=== PATIENT | male | born 1965 | race African-American/Black ===

== ENCOUNTER 2019-04-02 22:08 | Emergency (ER) | payer MEDICAID ==
[~2019-04-02] VITALS: Ht 175.3 cm; Wt 100.0 kg
[~2019-04-02 22:08] MED LIST: RANI150C12 PO
[2019-04-02] MEDS ORDERED: SODIUM CHLORIDE 0.9% 1,000 ML IV ONE (22:28)
[2019-04-02 22:50] LABS: BASOPHILS % 0.2 % (0.0-2.0); EOSINOPHILS % 0.7 % (0.0-5.0); HEMATOCRIT. 42.4 % (42.0-52.0); HEMOGLOBIN. 14.6 g/dL (14.0-18.0); LYMPHOCYTES % 33.9 % (20.0-50.0); MEAN CORPUSCULAR HEMOGLOBIN 31.2 pg (28.0-32.0); MEAN CORPUSCULAR VOLUME 90.8 fL (80.0-94.0); MEAN PLATELET VOLUME 8.4 fl (7.4-10.4); MONOCYTES % 11.3 % (2.0-8.0); NEUTROPHILS % 53.9 % (40.0-76.0); PLATELET 190 x1000/uL (130-400); RED BLOOD CELL COUNT 4.67 mill/uL (4.7-6.1); RED CELL DISTRIBUTION WIDTH 14.1 % (11.6-14.6)
[2019-04-02 22:54] LABS: CHLORIDE 106 mEq/L (98-107)
[2019-04-02 22:58] LABS: ETHANOL BLOOD < 10 mg/dL
[2019-04-02] MEDS ORDERED: PHENYTOIN SODIUM EXTENDED 100MG CAPSULE PO ONE (23:45)
[2019-04-02] MEDS ORDERED: PHENYTOIN 100 MG/4 ML UDC PO ONE (23:45)
[2019-04-03 01:49] VITALS: BP 134/78
== END 2019-04-03 02:13 | disposition home or self-care (01) ==
LOC: ER 22:08
DX: R56.9 Unspecified convulsions (principal); F17.200 Nicotine dependence, unspecified, uncomplicated; F12.10 Cannabis abuse, uncomplicated; I10 Essential (primary) hypertension
CPT/HCPCS: 36415; 80053; 80185; 80320; 85025; 96360; 99283; J7030; Z7610; G0480

== ENCOUNTER 2019-05-01 03:20 | Emergency (ER) | payer MEDICAID ==
[~2019-05-01] VITALS: Ht 180.3 cm; Wt 100.0 kg
[2019-05-01 04:18] LABS: BASOPHILS % 0.4 % (0.0-2.0); EOSINOPHILS % 0.9 % (0.0-5.0); HEMATOCRIT. 43.9 % (42.0-52.0); HEMOGLOBIN. 15.1 g/dL (14.0-18.0); LYMPHOCYTES % 53.4 % (20.0-50.0); MEAN CORPUSCULAR VOLUME 92.6 fL (80.0-94.0); MEAN PLATELET VOLUME 8.3 fl (7.4-10.4); MONOCYTES % 9.3 % (2.0-8.0); PLATELET 209 x1000/uL (130-400); RED BLOOD CELL COUNT 4.74 mill/uL (4.7-6.1); RED CELL DISTRIBUTION WIDTH 13.5 % (11.6-14.6)
[2019-05-01 04:28] LABS: CHLORIDE 106 mEq/L (98-107)
[2019-05-01 04:34] LABS: ETHANOL BLOOD < 10 mg/dL
[2019-05-01] MEDS ORDERED: PHENYTOIN SODIUM EXTENDED 100MG CAPSULE PO NR (05:30)
[2019-05-01 05:57] VITALS: BP 133/69
[2019-05-01 06:24] LABS: CLARITY URINE CLEAR (CLEAR); COLOR URINE YELLOW (YELLOW); KETONES URINE NEGATIVE (NEGATIVE); LEUKOCYTE ESTERASE URINE NEGATIVE (NEGATIVE); NITRITE URINE NEGATIVE (NEGATIVE); OCCULT BLOOD URINE NEGATIVE (NEGATIVE); PROTEIN URINE TRACE (NEGATIVE); SPECIFIC GRAVITY URINE 1.018 (1.005-1.030); UROBILINOGEN URINE 0.2 E.U./dL (0.2-1.0)
[2019-05-01 06:41] LABS: *COCAINE SCREEN URINE NEGATIVE (NEGATIVE); METHADONE URINE SCREEN NEGATIVE (NEGATIVE)
[2019-05-01 06:42] LABS: *AMPHETAMINES SCREEN URINE PRESUMTIVE POSITIVE (NEGATIVE); *BARBITURATES SCREEN URINE NEGATIVE (NEGATIVE); *BENZODIAZEPINES SCREEN URINE NEGATIVE (NEGATIVE); CANNABINOID URINE SCREEN NEGATIVE (NEGATIVE); OPIATES URINE SCREEN NEGATIVE (NEGATIVE); PHENCYCLIDINE URINE SCREEN NEGATIVE (NEGATIVE)
== END 2019-05-01 06:16 | disposition home or self-care (01) ==
LOC: ER 03:20
DX: G40.909 Epilepsy, unspecified, not intractable, without status epilepticus (principal); R89.2 Abnormal level of other drugs, medicaments and biological substances in specimens from other organs, systems and tissues; Z91.14 Patient's other noncompliance with medication regimen
CPT/HCPCS: 36415; 70450; 80053; 80185; 80305; 80320; 81003; 82962; 85025; 99284; Z7610; G0480

== ENCOUNTER 2020-09-09 07:58 | Emergency (ER) | payer MEDICAID ==
[~2020-09-09] VITALS: Ht 177.8 cm; Wt 90.0 kg
[2020-09-09] MEDS ORDERED: KETOROLAC 30MG/ML VIAL IM ONE (09:00)
[2020-09-09 09:43] VITALS: BP 158/86
== END 2020-09-09 10:00 | disposition home or self-care (01) ==
LOC: ER 07:58
DX: M25.551 Pain in right hip (principal); I10 Essential (primary) hypertension; G40.909 Epilepsy, unspecified, not intractable, without status epilepticus; F12.10 Cannabis abuse, uncomplicated
CPT/HCPCS: 73502; 96372; 99283; J1885

== ENCOUNTER 2020-09-21 09:04 | Emergency (ER) | payer MEDICAID ==
[~2020-09-21] VITALS: Ht 182.9 cm; Wt 91.0 kg
[2020-09-21 09:10] VITALS: BP 153/99
== END 2020-09-21 09:43 | disposition home or self-care (01) ==
LOC: ER 09:14
DX: M25.551 Pain in right hip (principal)
CPT/HCPCS: 99283

== ENCOUNTER 2021-04-12 10:00 | Emergency (ER) | payer MEDICAID ==
[~2021-04-12] VITALS: Ht 172.7 cm; Wt 70.0 kg
[2021-04-12] MEDS ORDERED: ONDANSETRON HCL 4MG/2ML INJ IV STA (10:29)
[2021-04-12] MEDS ORDERED: VISCOUS LIDOCAINE 2% 15 ML UDC PO ONE (10:30)
[2021-04-12] MEDS ORDERED: MAGNESIUM/ALUMINUM HYDROXIDE/SIMETHICONE 30ML UDC PO ONE (10:30)
[2021-04-12] MEDS ORDERED: FAMOTIDINE 20MG/2ML VIAL IV ONE (10:30)
[2021-04-12] MEDS ORDERED: DICYCLOMINE 10 MG/5 ML ORAL SYR PO ONE (10:30)
[2021-04-12 10:45] LABS: HEMATOCRIT. 40.7 % (42.0-52.0); HEMOGLOBIN. 14.1 g/dL (14.0-18.0); MEAN CORPUSCULAR HEMOGLOBIN 30.8 pg (28.0-32.0); MEAN CORPUSCULAR VOLUME 89.1 fL (80.0-94.0); MEAN PLATELET VOLUME 8.3 fl (7.4-10.4); PLATELET 187 x1000/uL (130-400); RED BLOOD CELL COUNT 4.57 mill/uL (4.7-6.1); RED CELL DISTRIBUTION WIDTH 13.7 % (11.6-14.6)
[2021-04-12 10:54] LABS: CHLORIDE 105 mEq/L (98-107)
[2021-04-12 12:00] VITALS: BP 171/100
[2021-04-12] MEDS ORDERED: OMEP20TA2 PO (12:12)
[2021-04-12 13:39] LABS: PLATELET ESTIMATE NORMAL
== END 2021-04-12 12:25 | disposition home or self-care (01) ==
LOC: ER 10:09
DX: K21.9 Gastro-esophageal reflux disease without esophagitis (principal); I10 Essential (primary) hypertension
CPT/HCPCS: 36415; 71045; 80053; 83880; 84484; 85025; 93005; 96374; 96375; 99285; J2405; J3490

== ENCOUNTER 2021-05-30 12:09 | Emergency (ER) | payer MEDICAID ==
[~2021-05-30] VITALS: Ht 182.9 cm; Wt 86.0 kg
[~2021-05-30 12:09] MED LIST changes: +OMEP20TA2 PO
[2021-05-30] MEDS ORDERED: SODIUM CHLORIDE 0.9% 1,000 ML IV ONE (12:45)
[2021-05-30 13:06] VITALS: BP 147/91
[2021-05-30 13:22] LABS: BASOPHILS % 0.6 % (0.0-2.0); HEMATOCRIT. 37.3 % (42.0-52.0); HEMOGLOBIN. 13.2 g/dL (14.0-18.0); MEAN CORPUSCULAR HEMOGLOBIN 32.2 pg (28.0-32.0); MEAN CORPUSCULAR VOLUME 90.7 fL (80.0-94.0); MONOCYTES % 12.2 % (2.0-8.0); NEUTROPHILS % 51.2 % (40.0-76.0); PLATELET 118 x1000/uL (130-400); RED BLOOD CELL COUNT 4.11 mill/uL (4.7-6.1); RED CELL DISTRIBUTION WIDTH 15.7 % (11.6-14.6)
[2021-05-30 13:25] LABS: CHLORIDE 103 mEq/L (98-107)
[2021-05-30 13:30] LABS: ETHANOL BLOOD < 10 mg/dL
[2021-05-30 14:10] LABS: *BENZODIAZEPINES SCREEN URINE NEGATIVE (NEGATIVE); *COCAINE SCREEN URINE NEGATIVE (NEGATIVE); METHADONE URINE SCREEN NEGATIVE (NEGATIVE); OPIATES URINE SCREEN NEGATIVE (NEGATIVE)
[2021-05-30 14:11] LABS: CANNABINOID URINE SCREEN NEGATIVE (NEGATIVE); PHENCYCLIDINE URINE SCREEN PRESUMTIVE POSITIVE (NEGATIVE)
[2021-05-30 14:13] LABS: *AMPHETAMINES SCREEN URINE PRESUMTIVE POSITIVE (NEGATIVE)
[2021-05-30] MEDS ORDERED: POTASSIUM CHLORIDE 20MEQ TABLET SR PO NR (14:15)
[2021-05-30 14:20] LABS: *BARBITURATES SCREEN URINE NEGATIVE (NEGATIVE)
[2021-05-30] MEDS ORDERED: POTA20TA82 MT (16:31)
[2021-05-31 10:29] LABS: CLARITY URINE CLEAR (CLEAR); COLOR URINE YELLOW (YELLOW); KETONES URINE NEGATIVE (NEGATIVE); LEUKOCYTE ESTERASE URINE NEGATIVE (NEGATIVE); NITRITE URINE NEGATIVE (NEGATIVE); OCCULT BLOOD URINE NEGATIVE (NEGATIVE); PH URINE 6.5 (4.5-8.0); PROTEIN URINE NEGATIVE (NEGATIVE)
== END 2021-05-30 18:23 | disposition home or self-care (01) ==
LOC: ER 12:09
DX: R55 Syncope and collapse (principal); F15.10 Other stimulant abuse, uncomplicated; F16.10 Hallucinogen abuse, uncomplicated; F12.10 Cannabis abuse, uncomplicated; E87.6 Hypokalemia; I10 Essential (primary) hypertension; G40.909 Epilepsy, unspecified, not intractable, without status epilepticus; Z71.51 Drug abuse counseling and surveillance of drug abuser
CPT/HCPCS: 36415; 71045; 80053; 80305; 80320; 81003; 83690; 83880; 84484; 85025; 93005; 96360; 96361; 99285; J7030; Z7610; G0480

== ENCOUNTER 2021-08-04 02:30 | Emergency (ER) | payer MEDICAID ==
[~2021-08-04] VITALS: Ht 175.3 cm; Wt 87.0 kg
[~2021-08-04 02:30] MED LIST changes: +POTA20TA82 MT
[2021-08-04] MEDS ORDERED: ACETAMINOPHEN WITH CODEINE 300/30MG TABLET PO ONE (03:30)
[2021-08-04] MEDS ORDERED: BACITRACIN ZINC OINT UDPKT TOP ONE (03:30)
[2021-08-04] MEDS ORDERED: LIDOCAINE HCL/PF 1% 10 MG/ML 5ML VIAL INFIL ONE (03:30)
[2021-08-04 04:02] VITALS: BP 133/66
[2021-08-04] MEDS ORDERED: CEPH500T MT (04:48)
[2021-08-04] MEDS ORDERED: SULF1TAB48 MT (04:48)
== END 2021-08-04 05:07 | disposition home or self-care (01) ==
LOC: ER 02:30
DX: L02.31 Cutaneous abscess of buttock (principal); F12.90 Cannabis use, unspecified, uncomplicated; F15.10 Other stimulant abuse, uncomplicated
CPT/HCPCS: 10060; 99283; J3490; Z7610

== ENCOUNTER 2021-08-16 02:27 | Emergency (ER) | payer MEDICAID ==
[~2021-08-16] VITALS: Ht 165.1 cm; Wt 80.0 kg
[~2021-08-16 02:27] MED LIST changes: +CEPH500T MT; +SULF1TAB48 MT
[2021-08-16 03:09] LABS: BASOPHILS % 0.6 % (0.0-2.0); EOSINOPHILS % 1.6 % (0.0-5.0); HEMOGLOBIN. 13.4 g/dL (14.0-18.0); LYMPHOCYTES % 30.6 % (20.0-50.0); MEAN CORPUSCULAR HEMOGLOBIN 31.8 pg (28.0-32.0); MEAN CORPUSCULAR VOLUME 92.2 fL (80.0-94.0); MEAN PLATELET VOLUME 8.2 fl (7.4-10.4); MONOCYTES % 7.1 % (2.0-8.0); NEUTROPHILS % 60.1 % (40.0-76.0); PLATELET 177 x1000/uL (130-400); RED BLOOD CELL COUNT 4.23 mill/uL (4.7-6.1); RED CELL DISTRIBUTION WIDTH 13.2 % (11.6-14.6)
[2021-08-16 03:16] LABS: CHLORIDE 105 mEq/L (98-107)
[2021-08-16 03:20] LABS: ETHANOL BLOOD < 10 mg/dL
[2021-08-16 03:42] LABS: CLARITY URINE CLEAR (CLEAR); COLOR URINE YELLOW (YELLOW); KETONES URINE NEGATIVE (NEGATIVE); LEUKOCYTE ESTERASE URINE NEGATIVE (NEGATIVE); NITRITE URINE NEGATIVE (NEGATIVE); OCCULT BLOOD URINE NEGATIVE (NEGATIVE); PROTEIN URINE NEGATIVE (NEGATIVE); SPECIFIC GRAVITY URINE 1.009 (1.005-1.030); UROBILINOGEN URINE 0.2 E.U./dL (0.2-1.0)
[2021-08-16 03:51] LABS: *AMPHETAMINES SCREEN URINE PRESUMTIVE POSITIVE (NEGATIVE); *BARBITURATES SCREEN URINE NEGATIVE (NEGATIVE); *BENZODIAZEPINES SCREEN URINE NEGATIVE (NEGATIVE); *COCAINE SCREEN URINE NEGATIVE (NEGATIVE); METHADONE URINE SCREEN NEGATIVE (NEGATIVE); OPIATES URINE SCREEN NEGATIVE (NEGATIVE)
[2021-08-16 03:52] LABS: CANNABINOID URINE SCREEN NEGATIVE (NEGATIVE); PHENCYCLIDINE URINE SCREEN PRESUMTIVE POSITIVE (NEGATIVE)
[2021-08-16 04:20] VITALS: BP 144/94
== END 2021-08-16 04:37 | disposition home or self-care (01) ==
LOC: ER 02:48
DX: T43.621A Poisoning by amphetamines, accidental (unintentional), initial encounter (principal); F15.10 Other stimulant abuse, uncomplicated; F16.10 Hallucinogen abuse, uncomplicated; R47.81 Slurred speech; R23.2 Flushing; F10.10 Alcohol abuse, uncomplicated; Y90.0 Blood alcohol level of less than 20 mg/100 ml; F12.90 Cannabis use, unspecified, uncomplicated; G40.909 Epilepsy, unspecified, not intractable, without status epilepticus; Y92.89 Other specified places as the place of occurrence of the external cause
CPT/HCPCS: 36415; 71045; 80053; 80305; 80320; 81003; 82140; 82962; 84443; 84484; 85025; 93005; 99285; G0480

== ENCOUNTER 2023-02-10 16:09 | Emergency (ER) | payer MEDICAID ==
[~2023-02-10] VITALS: Ht 162.6 cm; Wt 75.0 kg
[~2023-02-10 16:09] MED LIST changes: -OMEP20TA2 PO; +OMEP20TA23 PO; +POTA-204 MT; -POTA20TA82 MT
[2023-02-10 16:12] VITALS: BP 170/90
== END 2023-02-10 21:25 | disposition left against medical advice (07) ==
LOC: ER 16:09
DX: Z53.21 Procedure and treatment not carried out due to patient leaving prior to being seen by health care provider (principal); R14.1 Gas pain; R11.10 Vomiting, unspecified
CPT/HCPCS: 99281

== ENCOUNTER 2023-07-27 00:46 | Emergency (ER) | payer MEDICAID ==
[~2023-07-27] VITALS: Ht 165.1 cm; Wt 90.0 kg
[2023-07-27 00:47] VITALS: O2SAT 97
[2023-07-27 02:00] VITALS: TEMP 98.3
[2023-07-27 02:10] LABS: BASOPHILS % 0.4 % (0.0-2.0); EOSINOPHILS % 3.5 % (0.0-5.0); HEMATOCRIT. 38.2 % (42.0-52.0); HEMOGLOBIN. 12.8 g/dL (14.0-18.0); LYMPHOCYTES % 38.2 % (20.0-50.0); MEAN CORPUSCULAR HEMOGLOBIN 30.7 pg (28.0-32.0); MEAN CORPUSCULAR HGB CONC 33.4 g/dL (31.0-37.0); MEAN CORPUSCULAR VOLUME 91.7 fL (80.0-94.0); MEAN PLATELET VOLUME 9.2 fl (7.4-10.4); MONOCYTES % 11.4 % (2.0-8.0); NEUTROPHILS % 46.5 % (40.0-76.0); PLATELET 135 x1000/uL (130-400); RED BLOOD CELL COUNT 4.17 mill/uL (4.7-6.1); RED CELL DISTRIBUTION WIDTH 13.5 % (11.6-14.6); WHITE BLOOD COUNT 3.6 x1000/uL (4.5-11.0)
[2023-07-27 02:28] LABS: CHLORIDE 111 mEq/L (98-107); INDEX HEMOLYSI 3 (1-3); INDEX ICTERIC 1 (1-4); INDEX LIPEMIC 1 (1-3); SODIUM 141 mEq/L (136-145)
[2023-07-27 02:37] LABS: ALANINE AMINOTRANSFERASE 46 IU/L (13-61); ASPARTATE AMINOTRANSFERASE 43 IU/L (15-37); BILIRUBIN TOTAL 0.4 mg/dL (0.1-1.0); CALCIUM 7.9 mg/dL (8.5-10.1); CARBON DIOXIDE 28 mEq/L (21-32); CREATININE 1.1 mg/dL (0.6-1.3); ETHANOL BLOOD < 10 mg/dL (-10); GLUCOSE 104 mg/dL (70-105); NT PRO B-TYPE NATRIURETIC PEP 11 pg/mL (5-125); PROTEIN TOTAL 7.5 g/dL (6.0-8.3); TROPONIN I HIGH SENSITIVITY 20 ng/L (<78); UREA NITROGEN BLOOD 12 mg/dL (7-21)
[2023-07-27 03:24] LABS: PROTHROMBIN TIME 10.4 sec (9.6-11.0)
[2023-07-27 04:06] LABS: TROPONIN I HIGH SENSITIVITY 24 ng/L (<78)
[2023-07-27] MEDS ORDERED: TOPUD PO (04:37)
[2023-07-27] MEDS ORDERED: IBUP-2028 MT (04:37)
[2023-07-27] MEDS ORDERED: ACETAMINOPHEN 325MG TABLET PO ONE (04:45)
[2023-07-27] MEDS ORDERED: KETOROLAC 60MG/2ML VIAL IM ONE (04:45)
[2023-07-27 05:42] VITALS: BP 129/81; PULSE 75; RESP 16
== END 2023-07-27 05:48 | disposition home or self-care (01) ==
LOC: ER 00:46
DX: U07.1 COVID-19 (principal); F32.9 Major depressive disorder, single episode, unspecified; K21.9 Gastro-esophageal reflux disease without esophagitis; I10 Essential (primary) hypertension; I25.2 Old myocardial infarction; F12.10 Cannabis abuse, uncomplicated; F15.10 Other stimulant abuse, uncomplicated; Z79.899 Other long term (current) drug therapy; Z20.822 Contact with and (suspected) exposure to COVID-19
CPT/HCPCS: 80053; 80320; 83880; 83690; 85025; 85610; 84484; 36415; 71045; 93005; 99285; 87426; C9803; G0480

== ENCOUNTER 2023-12-22 13:19 | Emergency (ER) | payer MEDICAID ==
[~2023-12-22] VITALS: Ht 175.3 cm; Wt 95.7 kg
[~2023-12-22 13:19] MED LIST changes: +IBUP-2028 MT; +TOPUD PO
[2023-12-22 13:32] VITALS: BP 148/89; TEMP 98.2; O2SAT 100
[2023-12-22 13:56] VITALS: PULSE 89; RESP 18
== END 2023-12-22 14:12 | disposition home or self-care (01) ==
LOC: ER 13:19
DX: S80.861A Insect bite (nonvenomous), right lower leg, initial encounter (principal); F32.A Depression, unspecified; K21.9 Gastro-esophageal reflux disease without esophagitis; I10 Essential (primary) hypertension; I25.2 Old myocardial infarction; F12.90 Cannabis use, unspecified, uncomplicated; F15.90 Other stimulant use, unspecified, uncomplicated; X58.XXXA Exposure to other specified factors, initial encounter; Y93.89 Activity, other specified; Y92.89 Other specified places as the place of occurrence of the external cause; Y99.8 Other external cause status
CPT/HCPCS: 99281

== ENCOUNTER 2024-11-22 22:34 | Emergency (ER) | payer MEDICAID ==
[~2024-11-22] VITALS: Ht 182.9 cm; Wt 78.0 kg
[2024-11-22 22:35] VITALS: O2SAT 99
[2024-11-23] MEDS: ASPIRIN 81MG TABLET PO ONE (02:37)
[2024-11-23] MEDS: LORAZEPAM 2MG/ML INJ IV ONE (02:40)
[2024-11-23 02:41] LABS: BASOPHILS % 0.8 % (0.0-2.0); EOSINOPHILS % 0.2 % (0.0-5.0); HEMATOCRIT. 46.3 % (42.0-52.0); HEMOGLOBIN. 15.6 g/dL (14.0-18.0); MEAN CORPUSCULAR HEMOGLOBIN 30.4 pg (28.0-32.0); MEAN CORPUSCULAR HGB CONC 33.7 g/dL (31.0-37.0); MEAN CORPUSCULAR VOLUME 90.3 fL (80.0-94.0); MONOCYTES % 6.3 % (2.0-8.0); NEUTROPHILS % 66.7 % (40.0-76.0); PLATELET 187 x1000/uL (130-400); RED BLOOD CELL COUNT 5.13 mill/uL (4.7-6.1); RED CELL DISTRIBUTION WIDTH 14.3 % (11.6-14.6); WHITE BLOOD COUNT 7.1 x1000/uL (4.5-11.0)
[2024-11-23 02:58] LABS: CHLORIDE 101 mEq/L (98-107); POTASSIUM 4.3 mEq/L (3.5-5.1); SODIUM 133 mEq/L (136-145)
[2024-11-23 02:59] LABS: CALCIUM 9.3 mg/dL (8.7-10.4); CARBON DIOXIDE 23 mEq/L (21-32)
[2024-11-23 03:04] LABS: CREATININE 1.2 mg/dL (0.6-1.3); GLUCOSE 84 mg/dL (70-105); UREA NITROGEN BLOOD 14 mg/dL (9-23)
[2024-11-23 03:06] LABS: TROPONIN I HIGH SENSITIVITY 8 ng/L (3.0-53)
[2024-11-23 03:50] LABS: ETHANOL BLOOD < 10 mg/dL (<10)
[2024-11-23 04:24] LABS: TROPONIN I HIGH SENSITIVITY 10 ng/L (3.0-53)
[2024-11-23 08:00] VITALS: BP 136/88; PULSE 98; RESP 20; TEMP 36.94740; O2SAT 100
== END 2024-11-23 08:10 | disposition left against medical advice (07) ==
LOC: ER 22:34
DX: T50.991A Poisoning by other drugs, medicaments and biological substances, accidental (unintentional), initial encounter (principal); I10 Essential (primary) hypertension; F15.90 Other stimulant use, unspecified, uncomplicated; F19.90 Other psychoactive substance use, unspecified, uncomplicated; K21.9 Gastro-esophageal reflux disease without esophagitis; Z79.899 Other long term (current) drug therapy; Y92.89 Other specified places as the place of occurrence of the external cause
CPT/HCPCS: 99285; 80048; 80320; 83880; 85025; 85379; 84484; 36415; 71045; 93005; 96374; Z7610 ×4; J2060; G0480